=== PATIENT | female | born 1985 | race American Indian/Alaskan Native ===

== ENCOUNTER 2016-11-13 06:07 | Day surgery (SDC) | payer MEDICAID ==
[~2016-11-13 06:07] MED LIST: MARCAINE 0.5% INFILTRATI ONE
[2016-11-13] MEDS ORDERED: NACL BACTERIOSTATIC INFILTRATI ONE (07:01)
[2016-11-13] MEDS ORDERED: DECADRON ONE (07:28)
[2016-11-13] MEDS ORDERED: ROBINUL ONE ×2 (07:28)
[2016-11-13] MEDS ORDERED: DIPRIVAN 10 MG/ML IV ONE (07:28)
[2016-11-13] MEDS ORDERED: XYLOCAINE MPF 2% ONE (07:28)
[2016-11-13] MEDS ORDERED: NEOSTIGMINE ONE (07:28)
[2016-11-13] MEDS ORDERED: SUBLIMAZE ONE (07:28)
[2016-11-13] MEDS ORDERED: ZOFRAN ONE (07:28)
[2016-11-13] MEDS ORDERED: ZEMURON IV ONE (07:28)
--- NOTE | 2016-11-13 07:28 | Short Stay Summary ---
Short Stay Documentation Date of service: 11/13/16 Narrative H&P: Pt is a 31yo BF LMP 10/26/16 with complaints of pelvic pain presents for surgical evaluation and treatment of a right ovarian cyst. Pelvic u/s shows the uterus 9.3 x 5.8 x 5.3cm with a 6 x 4cm complex right ovarian mass. CA125 - 3. She is therefore scheduled for a Laproscopic right ovarian cystectomy. - History Principal diagnosis: right ovarian cyst H&P: obtained from office Past Medical History: No medical history Past Surgical History: Other (Laproscopic left salpingectomy - ectopic ) Social history: no significant social history, single - Allergies and Medications Current Medications: Allergies No Known Allergies Allergy (Verified 11/13/16 06:21) Home Medications Medication Instructions Recorded Confirmed Last Taken Type No Known Home Medications [No 11/11/16 11/11/16 Unknown History Reported Home Medications] - Physical exam General appearance: no acute distress Integumentary: no rash HEENT: Atraumatic Lungs: Clear to auscultation Breasts: deferred Heart: Regular rate Gastrointestinal: normal Female Genitourinary: deferred Rectal Exam: deferred Extremities: no ischemia Neurological: Normal gait, Normal speech - Brief post op/procedure progress note Date of procedure: 11/13/16 Pre-op diagnosis: 1. Pelvic pain 2. Right ovarian cyst Post-op diagnosis: same (with pelvic adhesions) Procedure: 1. Laproscopic right ovarian cystectomy 2. Lysis of pelvic adhesions Anesthesia: GETA Findings: A normal uterus. Absent left fallopian tube and normal left ovary encased in adhesions. A large right ovarian cyst with tortuous right fallopian tube and tubo-ovarian adhesions. Surgeon: WINNIE TOBIN Estimated blood loss: minimal Pathology: list (right ovarian cysts) Specimen disposition: to lab Condition: stable - Hospital course Hospital course: Unremarkable. - Disposition Condition at discharge: Good Disposition: [id number] TO HOME OR SELFCARE - Discharge Diagnoses (1) Pelvic pain Status: Acute (2) Right ovarian cyst Status: Acute (3) Pelvic adhesions Status: Acute Short Stay Discharge Plan Activity: no restrictions Diet: regular Follow up with: PRIMARY CARE, [Primary Care Provider] - 7 Days WINNIE TOBIN MD [Staff Physician] - 7 Days Prescriptions: HYDROcodone/APAP 5-325 [[place] 5/325] 1 each PO Q6HR PRN #30 tablet PRN Reason: Pain
[2016-11-13] MEDS ORDERED: MARCAINE 0.5% 30 ML INFILTRATI ONE (07:33)
--- NOTE | 2016-11-13 07:41 | Anesthesia Consultation ---
Anesthesia Consult and Med Hx Date of service: 11/13/16 - Airway Anesthetic Teeth Evaluation: Good ROM Head & Neck: Adequate Mental/Hyoid Distance: Adequate Mallampati Class: Class I Intubation Access Assessment: Probably Good - Pulmonary Exam CTA: Yes - Cardiac Exam Cardiac Exam: RRR - Pre-Operative Health Status ASA Pre-Surgery Classification: ASA2 Proposed Anesthetic Plan: General - Pulmonary Hx Smoking: Yes (marijuana "a lot") Hx Respiratory Symptoms: Yes (bronchitis, mar 2016) - Central Nervous System Hx Psychiatric Problems: No - Other Systems Hx Alcohol Use: Yes (occas) Hx Substance Use: Yes (MARIJUANA) Hx Cancer: No Hx Obesity: Yes
--- NOTE | 2016-11-13 07:41 | Anesthesia Day of Surgery ---
Anesthesia Day of Surgery - Day of Surgery Patient Examined: Yes Patient H&P Reviewed: Yes Patient is NPO: Yes
[2016-11-13] MEDS ORDERED: VERSED IV NR (07:42)
[2016-11-13 07:49] LABS: Hematocrit 31.4 % (30.3-42.9); Hemoglobin 10.9 gm/dl (10.1-14.3); Mean Corpuscular HGB Conc 35 % (30-34); Mean Corpuscular Hemoglobin 28 pg (28-32); Mean Corpuscular Volume 82 fl (79-97); Platelet Count 326 K/mm3 (140-440); Red Blood Count 3.84 M/mm3 (3.65-5.03); Red Cell Distribution Width 13.8 % (13.2-15.2); White Blood Count 6.4 K/mm3 (4.5-11.0)
[2016-11-13] MEDS ORDERED: LACTATED RINGERS 1,000 ML IV SCH (08:00)
[2016-11-13] MEDS ORDERED: ANCEF/STERILE WATER 2 GM/20 ML 2 GM/20 ML SYRINGE IV NR (08:00)
[2016-11-13] MEDS ORDERED: PEPCID IV NR (08:00)
[2016-11-13] MEDS ORDERED: NACL 0.9% IR ONE (08:47)
[2016-11-13] MEDS ORDERED: LACTATED RINGERS 1,000 ML ONE (09:01)
[2016-11-13] MEDS ORDERED: DILAUDID ONE ×2 (09:03→09:39)
[2016-11-13] MEDS ORDERED: TORADOL ONE (09:07)
[2016-11-13] MEDS ORDERED: MARCAINE 0.5% INFILTRATI ONE (09:10)
[2016-11-13] MEDS: DILAUDID IV PRN ×2 (09:35→09:45)
--- NOTE | 2016-11-13 09:56 | Operative Report ---
Operative Report Operative Report: Date of procedure: 11/13/2016 Pre-operative diagnosis: 1. Pelvic pain 2. Right ovarian cyst Post-operative diagnosis: Same with pelvic adhesions Procedure name(s): 1. Laparoscopic right ovarian cystectomy 2. Lysis of pelvic adhesions Surgeon: Paul Nielsen MD Customer Response Representative: None Anesthesia: Gen. endotracheal intubation by Dr. De Jesus EBL: Less than 10 mL Findings: A normal uterus with absent left fallopian tube and normal left ovary encased in pelvic adhesions. A large right ovarian mass with tortuous right fallopian tube and tubo-ovarian adhesions. Procedure: After the patient was correctly identified, she was prepped and draped in the usual sterile fashion and placed in the dorsolithotomy position. First the bladder was emptied using a straight catheter. Next a speculum was placed in the vaginal vault and anterior lip of the cervix was grasped using single-tooth tenaculum. The uterine manipulator was then placed and the tenaculum and speculum were removed. Attention was then turned to the abdomen where first a periumbilical incision was made using the skin knife, and the Optiview trocar was inserted under direct visualization. After an adequate amount of abdominal insufflation visualization of the pelvic organs found the uterus to be normal with absent left fallopian tube, and normal left ovary was encased in pelvic adhesions. The right ovarian mass was large and attached to a tortuous right fallopian tube and tubo-ovarian adhesions. A suprapubic incision and a right lateral incision was made through which 5 mm trochars were placed in order to aid in manipulation of the pelvic organs. The right tubo-ovarian adhesions were taken down thus the tortuous right fallopian tube from the right ovarian mass. The right ovarian mass was excised using the tripolar cautery, but in doing so the cyst ruptured spilling a dark- colored fluid into the pelvis. The entire cyst was excised, and removed by the Endopouch and sent to pathology. Copious amounts of irrigation was then performed, and good hemostasis was assured. Tisseel sealant was then sprayed across the ovarian cystectomy site. At this point the procedure was considered complete. All instruments removed from the abdomen, the abdomen deflated, and the periumbilical incision was closed using 0 Vicryl suture in a figure-of- eight configuration of the fascia followed by 4-0 Monocryl suture in the subcutaneous fashion the skin. The suprapubic and right lateral incisions were closed in similar fashion. Each incision was infiltrated using point Marcaine Solution. The uterine manipulator was removed, the patient tolerated the procedure well, and was transported to recovery in stable condition.
--- NOTE | 2016-11-13 10:48 | Post Anesthesia Evaluation ---
- Post Anesthesia Evaluation Patient Participated: Yes Airway Patent: Yes Stable Respiratory Function: Yes Nausea/Vomiting: No Temp > 96.8F: Yes Pain Manageable: Yes Adequeate Hydration: Yes Anesthesia Complications: No Block Receding Appropriately: Not Applicable Patient on Ventilator: No
[2016-11-13] MEDS ORDERED: NORCO 5/325 PO SCH (11:35)
[2016-11-13 12:48] VITALS: BP 98/63
== END 2016-11-13 12:42 | disposition home or self-care (01) ==
LOC: OR 06:07
PROVIDERS: ATTEND Obstetrics & Gynecology
DX: D27.0 Benign neoplasm of right ovary (principal); N83.8 Other noninflammatory disorders of ovary, fallopian tube and broad ligament; N73.6 Female pelvic peritoneal adhesions (postinfective); E66.9 Obesity, unspecified; Z68.41 Body mass index [BMI] 40.0-44.9, adult; F12.90 Cannabis use, unspecified, uncomplicated; Z90.79 Acquired absence of other genital organ(s); Z90.721 Acquired absence of ovaries, unilateral; Z72.89 Other problems related to lifestyle; Z98.890 Other specified postprocedural states
CPT/HCPCS: 36415; 58662; 81025; 85027; 88305; A4217; C9250; J0690; J1100; J1170; J1885; J2250; J2405; J2704; J2710; J3010; J7120